=== PATIENT | male | born 1950 | race Caucasian/White ===

== ENCOUNTER 2019-09-09 11:29 | Emergency (ER) | payer MEDICARE ==
[~2019-09-09] VITALS: Ht 182.9 cm; Wt 73.6 kg
[~2019-09-09 11:29] MED LIST: IBUP200C8 PO; LORA10CA; TAMS-11
[2019-09-09 11:34] VITALS: BP 143/79
--- NOTE | 2019-09-09 12:00 | NUR ---
Pt to room 24 per pedis. Pt was home loading brick, when the brick fell on his right arm. No LOC or any other injuries. Pt has small lump to right forearm, c/o pain at side. Small abrasion to top of lower forearm. Pt placed in gown, applied to monitor and given call light.
--- NOTE | 2019-09-09 13:10 | NUR ---
KURT Patel completing sugar tounge.
--- NOTE | 2019-09-09 13:22 | NUR ---
Pt returns from xray, chase forearm splint being applied via nuclear monitoring technician.
--- NOTE | 2019-09-09 13:58 | NUR ---
Patient/Caregiver given discharge instructions and they have confirmed that they understand the instructions. Patient ambulatory with steady gait.
== END 2019-09-09 14:00 | disposition home or self-care (01) ==
LOC: ED 11:50
DX: S50.11XA Contusion of right forearm, initial encounter (principal); K21.0 Gastro-esophageal reflux disease with esophagitis; W01.0XXA Fall on same level from slipping, tripping and stumbling without subsequent striking against object, initial encounter; Y93.89 Activity, other specified; Y92.009 Unspecified place in unspecified non-institutional (private) residence as the place of occurrence of the external cause; Y99.8 Other external cause status
CPT/HCPCS: 29125; 99283; 99284